=== PATIENT | male | born 1960 | race Caucasian/White ===

== ENCOUNTER 2022-07-07 08:42 | Outpatient (CLI) | payer BC, SELFPAY ==
[2022-07-07 13:38] LABS: Cholesterol* 168 mg/dL (90-199)
[2022-07-07 13:39] LABS: HDL Cholesterol* 48 mg/dL (>=40); LDL Cholesterol Calculated 99 mg/dL (<100); Triglycerides* 103 mg/dL (40-149)
[2022-07-07 23:55] LABS: Glucose* 119 mg/dL (60-115)
== END 2022-07-07 08:43 | disposition home or self-care (01) ==
PROVIDERS: PCP Physician Assistant Medical; Visit Provider Physician Assistant Medical
DX: Z00.00 Encounter for general adult medical examination without abnormal findings (principal); E21.3 Hyperparathyroidism, unspecified; R73.01 Impaired fasting glucose; E78.5 Hyperlipidemia, unspecified; I10 Essential (primary) hypertension
CPT/HCPCS: 80061; 82310; 82947; 83970; 84443

== ENCOUNTER 2023-12-07 10:17 | Outpatient (CLI) | payer BC, SELFPAY | END 2023-12-07 10:18 | disposition home or self-care (01) | LOC: LKVREF 10:17 | PROVIDERS: PCP Physician Assistant Medical; Visit Provider Physician Assistant Medical | DX: E21.3 Hyperparathyroidism, unspecified (principal); Z12.5 Encounter for screening for malignant neoplasm of prostate; E78.2 Mixed hyperlipidemia; I10 Essential (primary) hypertension; Z13.29 Encounter for screening for other suspected endocrine disorder; R82.90 Unspecified abnormal findings in urine | CPT/HCPCS: 80053; 80061; 82306; 82310; 83970; 84443; 87086; G0103 ==

== ENCOUNTER 2024-01-02 08:42 | Outpatient (CLI) | payer BC, SELFPAY ==
--- NOTE | 2024-01-02 08:45 | US_ITS ---
V Patient: SCOT STEVEN JR Facility:?[facility] RIS Patient ID:?[id number] Site Patient ID:?[id number]. Site :?1960 Study:?US-Extremity Bilateral ALNETTE INTV TO READ-01/02/2024 9:39:49 AM Ordering Physician:?LILO MURO Final Report: Indication: PALLOR Comparison: None Technique: Routine duplex arterial examination of bilateral lower extremities including 2D and spectral analysis, and color Doppler imaging was performed. Findings: In the right lower extremity there are multiphasic waveforms in the common femoral artery, profunda femoral artery, superficial femoral artery, and popliteal artery. Similarly, at the ankle, there are multiphasic waveforms in the posterior tibial artery, and dorsalis pedis arteries. No elevated velocities In the left lower extremity there are multiphasic waveforms within the common femoral artery, profunda femoral artery, superficial femoral artery, and popliteal artery. Similarly, at the ankle, there are multiphasic waveforms in the posterior tibial artery. Monophasic waveforms in the dorsalis pedis artery. No elevated velocities. Minimal atherosclerotic changes noted. Impression: Monophasic waveform within the left dorsalis pedis artery without abnormal velocity. Normal triphasic waveforms elsewhere bilaterally. No elevated velocities to suggest focal stenosis. Dictated by Royer Paniagua MD @ 01/02/2024 10:56:41 AM Signed by:?Royer Paniagua MD @01/02/2024 10:56:41 AM (Electronic Signature)
== END 2024-01-02 08:43 | disposition home or self-care (01) ==
LOC: US 08:43
PROVIDERS: PCP Physician Assistant Medical; Visit Provider Physician Assistant Medical
DX: R23.1 Pallor (principal); R09.89 Other specified symptoms and signs involving the circulatory and respiratory systems
CPT/HCPCS: 93926

== ENCOUNTER 2024-01-15 12:55 | Outpatient (CLI) | payer BC, SELFPAY ==
--- NOTE | 2024-01-15 13:00 | US_ITS ---
Patient: SCOT STEVEN JR Facility:?[facility] RIS Patient ID:?[id number] Site Patient ID:?[id number]. Site :?1960 Study:?US-Thyroid Bilateral -01/15/2024 1:51:44 PM Ordering Physician:GEORGE MURO Final Report: Indication: Hyperparathyroidism. Technique: Multiple grayscale and color Doppler images of the thyroid obtained. Comparison: None Findings: Right lobe: 5.4 x 1.5 x 2.0 cm. No nodules. Left lobe: 5.4 x 1.2 x 1.5 cm. Lesion 1: 1.1 cm solid, hypoechoic, smoothly marginated wider than tall nodule, TR 4. Lesion 2: 0.3 cm TR 4 nodule lower pole. Homogeneous thyroid parenchyma. No local adenopathy or extrathyroidal soft tissue mass. Impression: 1. No evidence for parathyroid adenoma. 2. 1.1 cm TR 4 nodule in the left thyroid lobe. Follow-up recommended in 1 year. ACR TI-RADS [email or web address] TR1: Benign No FNA TR2: Not Suspicious No FNA TR3: Mildly Suspicious FNA if greater than or equal to 2.5 cm Follow if greater than or equal to 1.5 cm TR4: Moderately Suspicious FNA if greater than or equal to 1.5 cm Follow if greater than or equal to 1 cm TR5: Highly Suspicious FNA if greater than or equal to 1 cm Follow if greater than or equal to 0.5 cm Dictated by Jose Raul Saenz MD @ 01/16/2024 9:54:48 AM Signed by:?Jose Raul Saenz MD @01/16/2024 9:54:48 AM (Electronic Signature)
== END 2024-01-15 12:56 | disposition home or self-care (01) ==
PROVIDERS: PCP Physician Assistant Medical; Visit Provider Physician Assistant Medical
DX: E21.3 Hyperparathyroidism, unspecified (principal); R09.89 Other specified symptoms and signs involving the circulatory and respiratory systems; R23.1 Pallor
CPT/HCPCS: 76536; 93924

== ENCOUNTER 2024-03-18 06:08 | Day surgery (SDC) | payer BC, SELFPAY ==
[2024-03-18] VITALS (17 sets, daily range): BP systolic 81–142; BP diastolic 38–81; PULSE 78–118; RESP 16; TEMP 36.2–36.9; O2SAT 93–99; BMI 37.0
--- OUTSIDE RECORDS SUMMARY | 2024-03-18 06:12 | XMS_ITS | Clinical Summary ---
Author Organization [facility] Address [place], [place] [address] Care Team Providers Care Order Caller Name Role Phone None Primary Care Provider Unavailabl e Encounters Date Type Department Care Team Description 01/15/2024 1:00 PM CDT Ancillary Procedure [facility] at [address] [address] from Last 3 Months Immunizations Name Administration Dates Next Due Influenza, IIV3 (Age >=3 years) 09/12/2012 Social History Tobacco Use Types Packs/Day Years Used Date Smoking Tobacco: Never Assessed Sex and Gender Information Value Date Recorded Sex Assigned at Not on file Gender Identity Not on file Sexual Orientation Not on file Plan of Treatment Not on file Procedures Procedure Name Priority Date/Time Associated Diagnosis Comments US ANKLE BRACHIAL INDEX BILATERAL Routine 01/15/2024 2:03 PM CDT Pallor from Last 3 Months Results * US ANKLE BRACHIAL INDEX BILATERAL (01/15/2024 2:03 PM CDT) Anatomical Region Laterality Modality ANKLES, ANKLE L, ANKLE R Ultraso und 01/15/2024 1:03 PM CDT Narrative 01/15/2024 4:39 PM CDT VASCULAR ULTRASOUND REPORT SCOT STEVEN Accession#: ?? [id number] : ?1960 ??Study Date: ?? 01/15/2024 1:03:07 PM Age: ?63 years ?? Tech: ? PAT Gender: M ?Referring MD: CHELLE MURO Site: [facility] Study performed: ?Lower extremity CIERA with exercise, (bilateral). Indication for study: Limb coldness, pre-op Study Quality: ?Good TECHNIQUE: Lower/upper extremity arteries were examined per exam protocol by duplex ultrasound, color-flow and spectral Doppler. Peak systolic velocities (PSV), Doppler waveform quality, velocity ratios and vessel size in cm, were documented at protocol specific sites. Physiologic data including segmental pressures, ankle/brachial index (CIERA), digit PPG recordings, laser Doppler flowmetry, transcutaneous oximetry, and digit temperatures were documented at sites per exam protocol and test requirements. IMPRESSION: 1. Resting ankle-brachial index is normal on the right at 1.19 and is normal on the left at 1.17. 2. The patient was unable to exercise for the entire protocol. 1 minute post exercises ABIs remain normal. COMPARISON: No prior study available for comparison. FINDINGS: +--------+ + + RIGHT ?? Velocity cm/s Phasicity ?? +--------+ + + SALES REP DST ? 74 ? multiphasic +--------+ + + SAMUEL DST ? 39 ? multiphasic +--------+ + + DPA ? 93 ? multiphasic +--------+ + + +--------+ + + LEFT ? Velocity cm/s Phasicity ?? +--------+ + + SALES REP DST ? 64 ? multiphasic +--------+ + + SAMUEL DST ? 32 ? multiphasic +--------+ + + DPA ? 46 ? multiphasic +--------+ + + Criteria: Stenosis ?V. Ratio Mild ?<50% ?<2.0 Moderate ?? 50-74% ?> or = 2.0 Severe ? 75-99% ?> or = 4.0 Occluded ?100% ?? no detectable flow Pressures +-----+ +--------+ +-----+ ? RIGHT (mmHg) ? LEFT (mmHg) ? +-----+ +--------+ +-----+ Index ?120 ? Brachial ?127 ? Index +-----+ +--------+ +-----+ 1.19 ?151 ?SALES REP ?135 ? 1.06 +-----+ +--------+ +-----+ 1.09 ?139 ?DPA ?149 ? 1.17 +-----+ +--------+ +-----+ EXERCISE Total Excercise Time: 1 minutes 17 seconds. Stopped due to bad/painful knees. Toe lifts. +-------+--------+ +------+ +------+ TIME ?? BRACHIAL RT PRESSURE RT CIERA LT PRESSURE LT CIERA +-------+--------+ +------+ +------+ Resting ??127 ?151 ? 1.19 ?149 ? 1.17 +-------+--------+ +------+ +------+ 1 min. ??138 ?163 ? 1.18 ?143 ? 1.04 +-------+--------+ +------+ +------+ Cj Will MD. Electronically signed on 01/15/2024 4:39:20 PM CC: HIM (medical records) [facility] This study was performed and interpreted by a service accredited by the Intersocietal Accreditation Commission (IAC/Vascular), www.[email or web address].org/vascular Report generated by [employer]. ??Final ?? Procedure Note Cj Will MD - 01/15/2024 VASCULAR ULTRASOUND REPORT SCOT STEVEN : 1960 Study Date: 01/15/2024 1:03:07 PM Age: 63 years Tech: PAT Gender: M Referring MD: CHELLE MURO Site: [facility] Study performed: Lower extremity CIERA with exercise, (bilateral). Indication for study: Limb coldness, pre-op Study Quality: Good TECHNIQUE: Lower/upper extremity arteries were examined per exam protocol by duplexultrasound, color-flow and spectral Doppler. Peak systolic velocities(PSV), Doppler waveform quality, velocity ratios and vessel size in cm,were documented at protocol specific sites. Physiologic data includingsegmental pressures, ankle/brachial index (CIERA), digit PPG recordings,laser Doppler flowmetry, transcutaneous oximetry, and digit temperatureswere documented at sites per exam protocol and test requirements. IMPRESSION: 1. Resting ankle-brachial index is normal on the right at 1.19 and isnormal on the left at 1.17. 2. The patient was unable to exercise for the entire protocol. 1 minutepost exercises ABIs remain normal. COMPARISON: No prior study available for comparison. FINDINGS: +--------+ + + RIGHT Velocity cm/s Phasicity +--------+ + + SALES REP DST 74 multiphasic +--------+ + + SAMUEL DST 39 multiphasic +--------+ + + DPA 93 multiphasic +--------+ + + +--------+ + + LEFT Velocity cm/s Phasicity +--------+ + + SALES REP DST 64 multiphasic +--------+ + + SAMUEL DST 32 multiphasic +--------+ + + DPA 46 multiphasic +--------+ + + Criteria: Stenosis V. Ratio Mild <50% <2.0 Moderate 50-74% > or = 2.0 Severe 75-99% > or = 4.0 Occluded 100% no detectable flow Pressures +-----+ +--------+ +-----+ RIGHT (mmHg) LEFT (mmHg) +-----+ +--------+ +-----+ Index 120 Brachial 127 Index +-----+ +--------+ +-----+ 1.19 151 SALES REP 135 1.06 +-----+ +--------+ +-----+ 1.09 139 DPA 149 1.17 +-----+ +--------+ +-----+ EXERCISE Total Excercise Time: 1 minutes 17 seconds. Stopped due to bad/painfulknees. Toe lifts. +-------+--------+ +------+ +------+ TIME BRACHIAL RT PRESSURE RT CIERA LT PRESSURE LT CIERA +-------+--------+ +------+ +------+ Resting 127 151 1.19 149 1.17 +-------+--------+ +------+ +------+ 1 min. 138 163 1.18 143 1.04 +-------+--------+ +------+ +------+ Cj Will MD. Electronically signed on 01/15/2024 4:39:20 PM CC: HIM (medical records) [facility] This study was performed and interpreted by a service accredited by theIntersocietal Accreditation Commission (IAC/Vascular),www.[email or web address]/vascular Report generated by [facility] [facility]. Final Chelle LENNON from Last 3 Months Care Teams Order Caller Relationship Specialty Start Date End Date None . PCP - General 09/11/12
--- OUTSIDE RECORDS SUMMARY | 2024-03-18 06:12 | XMS_ITS | Clinical Summary ---
Author Organization [facility] Address [address] [place] [address] Care Team Providers Care Director Of Investigations Name Role Phone Arlin Turpin MD Primary Care Provider [phone] Source Comments You are receiving this document as you are listed as the primary care provider,follow-up provider, or the patient has been referred to you for consultation.This is in compliance with the Medicare and[facility] EHR Incentive Program,which states Providers who transition their patient to another setting of careor provider of care or refers their patient to another provider of care shouldprovide summary care record for each transition of care or referral. [facility] Allerg[facility] No known active allergies Medications Medication Sig Dispensed Refills Start Date End Date Status Glucosamine 500 MGIndications:Hypercal cemia,Hyperparathyroid ism (HRC) Active ibuprofen (MOTRIN) 200 MG tabletIndications:Hype rcalcemia,Hyperparathy roidism (HRC) Take 200-400 mg by mouth every 4 hours as needed for Pain. Active lisinopril-hydrochloro thiazide (PRINZIDE;ZESTORETIC) 20-12.5 MG tabletIndications:Hype rcalcemia,Hyperparathy roidism (HRC) Take 1 Tablet by mouth daily. Active Multiple Vitamins-Minerals (MULTI ADULT GUMMIES OR)Indications:Hyperca lcemia,Hyperparathyroi dism (HRC) Active simvastatin (ZOCOR) 20 MG tabletIndications:Hype rcalcemia,Hyperparathy roidism (HRC) Take 20 mg by mouth daily at bedtime. Active Active Problems Problem Noted Date Diagnosed Date Primary hyperparathyroidism 08/28/2018 Overview: Added automatically from request for surgery [id number] Obesity, unspecified obesity severity, unspecified obesity type 06/27/2018 Essential hypertension 06/27/2018 Dyslipidemia 06/27/2018 Hypercalcemia 06/27/2018 Social History Tobacco Use Types Packs/Day Years Used Date Smoking Tobacco: Former Cigarettes Q uit: 08/28/1988 Smokeless Tobacco: Never Alcohol Use Standard Drinks/Week Comments Yes 0 (1 standard drink = 0.6 oz pur e alcohol) 1-2 per week Sex and Gender Information Value Date Recorded Sex Assigned at Not on file Gender Identity Not on file Sexual Orientation Not on file Last Filed Vital Signs Vital Sign Reading Time Taken Comments Blood Pressure 116/80 06/27/2018 10:01 AM CDT Pulse 96 06/27/2018 10:01 AM CDT Temperature - - Respiratory Rate - - Oxygen Saturation - - Inhaled Oxygen Concentration - - Weight 126.1 kg (278 lb) 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 Height 194.3 cm (6' 4.5) 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 Body Mass Index 33.4 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 Plan of Treatment Health Maintenance Due Date Last Done Comments Colon Cancer Screening Plan Due 1960 Hep C Screening (Preventive Services) 1960 PSA Screening Discussion 1960 HIV Screening (Preventive Services) 1978 Adult Preventive Visit 02/28/1980 Cholesterol 1997 Zoster/Shingles (1 of 2) 02/28/2012 COVID-19 Vaccine ( season) 2023 01/23/2021, 01/02/2021 Influenza (Season Ended) 2024 021, 08/30/2019, 08/19/2018, Additional history exists DTaP/Tdap/Td (2 - Tdap) 06/08/2027 06/08/2017, 12/29 HepA Aged Out 08/01/2007, 01/14, 12/29/2006 No longer eligible based on patient's age to complete this topic HepB Aged Out No longer eligi ble based on patient's age to complete this topic Hib Aged Out No longer eligi ble based on patient's age to complete this topic IPV (Polio) Aged Out No longer eligi ble based on patient's age to complete this topic MCV4 Aged Out No longer eligi ble based on patient's age to complete this topic Pneumococcal Aged Out No longer eligi ble based on patient's age to complete this topic Care Teams Director Of Investigations Relationship Specialty Start Date End Date Arlin Turpin MD [address] [place] [address] PCP - General Family Practice 06/27/18
[2024-03-18] MEDS: ACETAMINOPHEN 500 MG TABLET 1000 MG PO (06:15)
[2024-03-18] MEDS: OXYCODONE (CR) 10 MG TAB.ER.12H PO (06:15)
[2024-03-18] MEDS: LACTATED RINGERS 1000 ML 1,000 ML 100 ML IV (06:45)
[2024-03-18] MEDS: SODIUM CHLORIDE 0.9 % (FLUSH) 10 ML SYRINGE IVF (06:45)
--- NOTE | 2024-03-18 07:06 | W.PM.H&PU ---
History & Physical Update History & Physical Update H&P Reviewed and patient assessed: No changes noted
[2024-03-18] MEDS: MIDAZOLAM HCL 1 MG/ML inj IVP (07:10)
[2024-03-18] MEDS: fentaNYL 100 MCG/2 ML inj IVP (07:11)
--- NOTE | 2024-03-18 07:17 | SUR.PREOP ---
TIME?OUT:?0710 PT/RN/MDA?VERIFICATION?OF?SURGICAL?SITE,?PROCEDURE,?AND?CONSENT OBTAINED?PRIOR?TO?INVASIVE?PROCEDURE.
[2024-03-18] MEDS: CEFAZOLIN 2 GM in 0.9 % SODIUM CHLORIDE Mini-bag 100 ML IVPB (07:30)
[2024-03-18] MEDS: TRANEXAMIC ACID 100 MG/ML INJ 1000 MG IV (07:40)
--- NOTE | 2024-03-18 07:55 | W.PM.NB ---
Nerve Block Nerve Block Time Seen by Provider: 07:13 Date Seen: 03/18/24 Type of block requested by surgeon for post-operative analgesia: adductor canal Side: left Time out performed: Yes Verification of patient name: Yes Verification of date of : Yes Site marking: site marked Name of person performing procedure: Fabio Continuous monitoring Was continuous monitoring of O2 sat, B/P, engineering specialist technician, recorded every 15 minutes?: Yes Procedure Checklist: sterile prep, needles and gloves Ultrasound guided. Images saved: Yes Medications given in 5ml increments after negative aspiration: Ropivicaine %: 0.5 mL: 20 Needle gauge: 20 Decadron (mg): 10 Precedex (mcg): 25 Patient tolerated procedure well: Yes Additional comments: Needle noted adjacent to nerve Block Charges Block Charge (with Pro Fee): Femoral Nerve Use of Ultrasound Machine for Block: Yes- US Guidance/pain block
--- NOTE | 2024-03-18 07:56 | W.PM.NB ---
Nerve Block Nerve Block Time Seen by Provider: 07:13 Date Seen: 03/18/24 Type of block requested by surgeon for post-operative analgesia: geniculars Side: left Time out performed: Yes Verification of patient name: Yes Verification of date of : Yes Site marking: site marked Name of person performing procedure: Fabio Continuous monitoring Was continuous monitoring of O2 sat, B/P, panel monitor, recorded every 15 minutes?: Yes Procedure Checklist: sterile prep, needles and gloves Medications given in 5ml increments after negative aspiration: Ropivicaine %: 0.5 mL: 9 Needle gauge: 25 Patient tolerated procedure well: Yes Block Charges Block Charge (with Pro Fee): Genicular Nerve Block Use of Ultrasound Machine for Block: No
--- NOTE | 2024-03-18 07:56 | W.ANESCHARGE ---
Anesthesia Charges Start Date/Time Anesthesia Start Date: 03/18/24 Anesthesia Start Time: 07:18 Stop Date/Time Anesthesia Stop Date: 03/18/24 Anesthesia Stop Time: 09:40
--- NOTE | 2024-03-18 09:00 | P.ORPRC_ITS ---
Procedure Note Date of procedure: 03/18/24 Procedure: PREOPERATIVE DIAGNOSIS: 1. Left knee osteoarthritis, primary, severe POSTOPERATIVE DIAGNOSIS: 1. Left knee osteoarthritis, primary, severe PROCEDURE: 1. Left total knee arthroplasty-subvastus approach SURGEON: Seb Boyd MD. MANAGER PAYER: MACIEJ Ruiz - Of note, a skilled trading assistant was critical for this case to aid in patient positioning, tissue retraction, limb manipulation/positioning, and closure. ANESTHESIA: Spinal anesthetic EBL: 50ml IMPLANTS: DePuy J&J uncemented femur/tibia, cemented patella TKA - Attune Press fit PS femur size 8, size 8 tibia, 6 mm poly spacer, 41mm cemented patella TOURNIQUET: 90 min at 300 torr COMPLICATIONS: None evident INDICATIONS: The patient is a pleasant 64-year-old male who has experienced severe left knee pain and difficulty bearing weight. Workup included x-rays which revealed severe osteoarthrosis in the knee. Given the deformity, the dysfunction, and the pain, as well as the failure of nonoperative management, recommendation was made for surgery. FINDINGS: Full-thickness chondral loss diffusely throughout the medial and patellofemoral compartments. To a lesser degree lateral compartment. Degene rative medial meniscus pathology. Moderate to large effusion upon entering the joint. Large tricompartmental osteophytes. DESCRIPTION OF PROCEDURE: Following a thorough discussion of risks, benefits, and alternatives consent was obtained and the left knee was marked. The patient was brought to the operating room and placed supine on the operating table. Induction of anesthesia was undertaken. 3 g IV Ancef and 1 g tranexamic acid was administered within 1 hr of incision preoperatively. Proper time-out was performed identifying proper patient, site, procedure. The operative extremity w as prepped and draped in the appropriate sterile fashion using ChloraPrep after the patient was positioned supine with all bony prominences well padded. A longitudinal, anterior, midline skin incision was made starting approximately 3cm proximal to the superior pole of the patella and advanced distal to the tibial tubercle. A sub vastus approach was utilized. After mobilizing the patella, retropatellar fatpad was resected and the synovium in the suprapatellar pouch excised to visualize the anterior femoral cortex. We began with cutting the patella to help improve mobility of this patella and quad tendon. The patella was initially measured and found have a thickness of 30 mm. It was resected back to approximately 28.5 mm. Femoral preparation was performed via an intramedullary guide. Step drill allowed access into the femoral canal. The distal cutting guide was placed with 5? of valgus and 11 mm cut on the distal femur due to a 5-7 degree flexion contracture. Femur was sized using a anterior referencing guide in 3? of external rotation. This found have a best fit with the sizing noted above. The 4 in 1 cutting block was then placed, and the distal femur shaped accordingly. The box cut was then created and the trial implant inserted to confirm appropriate fit. We turned our attention to the proximal tibia. Extramedullary guide was utilized for cutting with the goal of being 90 degree cut from the mechanical axis of the tibia in the varus/valgus plane utilizing tibial crest as the primary alignment. Initially a 2 mm resection was performed from the medial tibi al plateau. Ultimately, balancing was achieved in both flexion and extension in both varus and valgus. The knee was able to achieve full extension comfortably. It was sized to be a best fit with as noted above. The patella prep was completed with drilling and a trial placed. At this stage, trial implants were removed, the tibia and femoral components were opened and inserted. Thereafter, the patella was thoroughly irrigated normal saline and dried. The cement was previously mixed on the back table and cement placed followed by the implant. This was clamped and allowed remained stable until the cement cured. The real poly spacer was opened and inserted. All extra cement was removed, and a 3 min Betadine soak performed. Finally, a final irrigation round with normal saline was performed. Closure performed with 0 PDS and #0 Stratafix for the quad tendon/retinaculum. 2-0 Vicryl/Stratafix for the subcutaneous and 4-0 Monocryl for subcuticular closure. Dressings were applied and the patient was awoken from anesthesia after the tourniquet deflated and transferred the PACU in stable condition. A skilled trading assistant was critical for this case to aid in patient positioning, tissue retraction, bone exposure, limb manipulation/positioning, patient safety, and closure. PLAN: 1. Weight bear as tolerated operative extremity. 2. 23 hr perioperative antibiotics. 3. Ice. 4. PT/OT consults for ambulation assistance/mobility education. 5. Social work consult for discharge planning. 6. [facility], and aspirin twice daily.
--- NOTE | 2024-03-18 09:35 | CRLHL7_ITS ---
For Patients: As a result of the Cures Act, medical imaging exams and procedure reports are released immediately into your electronic medical record. You may view this report before your referring provider. If you have questions, please contact your health care provider. Indication: TKA -POST OP Technique: 2 views left knee Findings/Impression: Hardware from a left total knee arthroplasty is in satisfactory position. Bone alignment is normal. No sign of acute fracture. Postop changes are within normal limits. Dictated by Royer Paniagua MD @ 03/18/2024 9:56:39 AM (Electronically Signed)
--- NOTE | 2024-03-18 09:46 | W.ANESCHARGE ---
Anesthesia Charges Start Date/Time Anesthesia Start Date: 03/18/24 Anesthesia Start Time: 07:18 Stop Date/Time Anesthesia Stop Date: 03/18/24 Anesthesia Stop Time: 09:40
[2024-03-18] MEDS: LACTATED RINGERS 1000 ML 1,000 ML 35 ML IV (10:02)
--- NOTE | 2024-03-18 12:57 | SUR.PHASEII ---
12:30 UP IN CHAIR WITH ASSIST OF A WALKER. DID WELL PUTTING WEIGHT ON LT. LEG. VERY STEADY AND STRONG TRANSFER TO CHAIR.
== END 2024-03-18 14:07 | disposition home or self-care (01) ==
LOC: OR 06:10
PROVIDERS: PCP Physician Assistant Medical; Visit Provider Orthopaedic Surgery Sports Medicine
PROC: (CPT 27447; principal; 2024-03-18 07:15)
DX: M17.12 Unilateral primary osteoarthritis, left knee (principal); G89.18 Other acute postprocedural pain
CPT/HCPCS: 27447; 01402; 64447; 64454; 73560; 76942; 97110; 97116; 97161; 97530; A9270; C1776; J0690; J1100; J2250; J2371; J2405; J2704; J2795; J3010; J7120

== ENCOUNTER 2024-05-30 10:00 | Outpatient (RCR) | payer BC, SELFPAY ==
--- NOTE | 2024-04-11 10:33 | PT.OPDN ---
PT [facility] Daily Note PT [facility] Daily Note Start: 03/13/24 07:40 Freq: Status: Active Protocol: Document 04/11/24 09:35 CJT (Rec: 04/11/24 10:32 CJT [id number]) E-signed By Jules Darling, PT PT OP Daily Progress Note Visit Information Note Type Recert/Progress Note Visit Number 8 Insurance Authorized Visits no auth required Physician Authorized Visits eval and treat Insurance Information Recert Due Date 06/11/24 Insurance Name [employer] Medical Diagnosis L TKA Treating Diagnosis L TKA Referring Seb Katz MD Subjective Subjective Pt doing well. Using his walking stick less and less. Preferred Name Sb Precautions Treatment Precautions/Contraindications DOS 03/18/24 Weight Bearing Status Weight Bear as Tolerated Home Exercise Home Exercise Comments Access Code: [email or web address] URL: [email or web address] Date: 04/09/2024 Prepared by: Jules Darling Exercises - Seated Long Arc Quad with Ankle Weight - 1 x daily - 7 x weekly - 2-3 sets - 10-15 reps - Step Up - 1 x daily - 7 x weekly - 2-3 sets - 10-20 reps - Standing March with Counter Support - 1 x daily - 7 x weekly - 3 sets - 10 reps - Standing Hip Abduction with Counter Support - 1 x daily - 7 x weekly - 3 sets - 10 reps - Standing Hip Extension with Counter Support - 1 x daily - 7 x weekly - 3 sets - 10 reps - Squat with Counter Support - 1 x daily - 7 x weekly - 3 sets - 10 reps - Heel Raises with Counter Support - 1 x daily - 7 x weekly - 3 sets - 10 reps Objective Other/Pertinent Objective L knee AROM: 0-0-116 Patient Instructed in Risks/Benefits Yes Therapeutic Exercise Therapeutic Exercise Minutes (minutes) 47 Therapeutic Exercise: To Restore Bike - Seat 16 -> 13, 12 Functional Status minutes 3-way hip in standing x 15 ea 6 step-ups, 2 x 15 4 step-downs, 2 x 15 Squats with hands at rail 2 x 15 TG Squats x 25 Supine knee extension stretch x 2' Knee flexion stretch with belt x 2' Manual Therapy Techniques Manual Therapy Minutes (minutes) 8 Manual Therapy Techniques STM to L quad, ITB, adductor bundle to reduce tissue tension and facilitate bloodflow to reduce muscle soreness. Gait & Stair Training Gait Training/Stairs Minutes (minutes) 4 Gait & Stair Training Comments Ambulation without AD: pt ambulates approx 240 ft, VC for heel-to-toe pattern through stance phase Treatment Minutes Timed Code Treatment Minutes 59 Total Treatment Time 59 Billing Units Manual Therapy Units 1 Therapeutic Exercise Units 3 Assessment/Impression Assessment/Impression Pt tolerates treatment very well. He will likely be quite sore in his L quad later today /tomorrow. He should continue to complete his exercises, walk and perform light massage to sore muscle to help reduce DOMS. Sb is demonstrating 0 -0-116 degrees of L knee AROM this date. While he did have a few rough weeks after surgery with excessive swelling and pain, he is progressing on an appropriate timeline. I have no concerns for Sb at this time. Recommend continued PT services to address deficits and return pt to highest level of function. Plan of Care Physical Therapy Goals STG - To be completed in 2-3 weeks: 1. Pt will report consistent use of ice as well as elevation of surgical limb while resting to reduce inflammation and swelling. MET 2. Pt will demonstrate 90 degrees of knee flexion on surgical limb to reduce risk of contracture development and progress through rehabilitation as expected. MET 3. Pt to show appropriate use of all AD's with minimal gait deviations and no LOB with all ambulation to reduce risk of falls and restore normal gait mechanics. MET 4. Pt will demo full knee extension to reduce risk of contracture in posterior knee and allow for ease of ambulation. MET LTG - To be completed in 8-12 weeks: 1. Pt to be I with HEP so that they may I manage progression of symptoms. 2. Pt will demonstrate 120 degrees knee flexion on surgical limb so that they may descend steps without restrictions in ROM. 3. Pt will perform 10+ squats of full depth with good control over medial/lateral deviation of knees to show improved functional strength to assist with transfers. 4. Pt will demonstrate 5/5 MMT knee flexion/extension of surgical limb to provide greater support to knee joint and allow for ease of ambulation. 5. Pt will ambulate with no AD and minimal gait deviations so that they may return to walking safely and comfortably for exercise and pleasure. Daily Plan of Care Continue per POC Student Supervision Licensed PT Directed/Approved Treatment, Reviewed POC with Patient,Made Contact with Patient, Participated in Treatment Documentation Reviewed By Orderly Yes
== END 2024-05-30 14:00 | disposition home or self-care (01) ==
PROVIDERS: PCP Physician Assistant Medical; Visit Provider Orthopaedic Surgery Sports Medicine
DX: M17.12 Unilateral primary osteoarthritis, left knee (principal); Z96.652 Presence of left artificial knee joint; Z51.89 Encounter for other specified aftercare
CPT/HCPCS: 97016; 97110; 97112; 97116; 97140; 97161; 97164

== ENCOUNTER 2025-02-17 12:03 | Outpatient (CLI) | payer BC, SELFPAY | END 2025-02-17 12:04 | disposition home or self-care (01) | PROVIDERS: PCP Physician Assistant Medical; Visit Provider Physician Assistant Medical | DX: E04.1 Nontoxic single thyroid nodule (principal); R73.01 Impaired fasting glucose; E66.09 Other obesity due to excess calories; E21.3 Hyperparathyroidism, unspecified; E78.5 Hyperlipidemia, unspecified; I10 Essential (primary) hypertension; Z12.5 Encounter for screening for malignant neoplasm of prostate; Z13.6 Encounter for screening for cardiovascular disorders; Z68.36 Body mass index [BMI] 36.0-36.9, adult; Z11.59 Encounter for screening for other viral diseases; Z11.3 Encounter for screening for infections with a predominantly sexual mode of transmission | CPT/HCPCS: 80053; 80061; 82306; 83970; 84443; 86703; 86803; G0103 ==

== ENCOUNTER 2025-02-18 09:42 | Outpatient (CLI) | payer BC, SELFPAY ==
--- NOTE | 2025-02-18 09:15 | CRLHL7_ITS ---
For Patients: As a result of the Century Cures Act, medical imaging exams and procedure reports are released immediately into your electronic medical record. You may view this report before your referring provider. If you have questions, please contact your health care provider. INDICATION: Thyroid nodules COMPARISON: 01/15/2024 TECHNIQUE: Lyons scale and color Doppler images were acquired of the thyroid gland. FINDINGS: Hypoechoic nodule inferior pole left thyroid lobe measures 3 x 2 x 3 millimeters, TR 4, previously measuring 3 x 2 x 4 millimeters. Solid nodule left thyroid lobe measures 8 x 6 x 11 millimeters, previously measuring 11 millimeters, TR 4. The right lobe measures 5.7 x 1.5 x 1.9 cm and the left lobe measures 5.1 x 1.2 x 1.4 cm in size. The isthmus measures 3 millimeters. The color Doppler images demonstrate normal vascularity. There is no evidence of cervical lymphadenopathy or parathyroid mass. IMPRESSION: Stable left-sided thyroid nodules. Continued follow-up in 1-2 years recommended. Dictated by Royer Paniagua MD @ 02/18/2025 8:07:22 PM (Electronically Signed)
== END 2025-02-18 09:43 | disposition home or self-care (01) ==
PROVIDERS: PCP Physician Assistant Medical; Visit Provider Physician Assistant Medical
DX: E04.1 Nontoxic single thyroid nodule (principal)
CPT/HCPCS: 76536

== ENCOUNTER 2025-03-28 14:54 | Emergency (ER) | payer BC, SELFPAY ==
[2025-03-28] VITALS (58 sets, daily range): BP systolic 117–155; BP diastolic 66–96; PULSE 110–130; RESP 16–30; TEMP 37.3; O2SAT 89–96; BMI 37.4
--- NOTE | 2025-03-28 14:55 | CRLHL7_ITS ---
For Patients: As a result of the Century Cures Act, medical imaging exams and procedure reports are released immediately into your electronic medical record. You may view this report before your referring provider. If you have questions, please contact your health care provider. INDICATION: SOB, elevated D-dimer. TECHNIQUE: CT chest PE was acquired with 95 cc Isovue 370 IV contrast. COMPARISON: None. FINDINGS: Heart and vasculature: Saddle pulmonary embolism (/80) that begins in the main pulmonary artery and extends bilaterally to the distal branches. Main pulmonary artery is normal caliber. RV:LV ratio is greater than 1. Trace pericardial effusion. Coronary artery atherosclerotic calcifications. Atherosclerotic calcifications of the aortic arch. Lungs and pleura: No definite acute infiltrate. Multiple noncalcified pulmonary nodules, for example 8 mm right lower lobe subpleural nodule (5/92), 5 mm right upper lobe subpleural nodule (5/59), and 5 mm left lower lobe subpleural nodule (5/99). Mild subsegmental atelectasis no pleural effusions, pleural thickening, or pneumothorax. Lymph nodes/mediastinum: No mediastinal, hilar, or axillary adenopathy. Chest wall: No masses. Moderate bilateral gynecomastia. Upper abdomen: No acute findings. 1.6 cm right adrenal nodule that is not fully characterized on this exam (4/211). Bones: Unremarkable for age. IMPRESSION: 1. Saddle pulmonary embolism extending to the distal branches. RV:LV ratio is greater than 1, which could be consistent with right heart strain in the right clinical setting. 2. Multiple noncalcified pulmonary nodules measuring up to 8 mm. Per Fleischner guidelines, follow-up chest CT in 6-12 months could be considered to ensure stability. 3. Indeterminate 1.6 cm right adrenal nodule. Outpatient MR or CT adrenal protocol could be considered for more definitive evaluation, if clinically indicated. Findings communicated to MD Papi (ordering provider) by MD Abdi (radiology) at 4:35 p.m. by phone. Please note that all CT scans at this facility use dose modulation, iterative reconstruction, and/or weight-based dosing when appropriate to reduce radiation dose to as low as reasonably achievable. Dictated by Royer Patton MD @ 03/28/2025 4:48:32 PM (Electronically Signed)
--- OUTSIDE RECORDS SUMMARY | 2025-03-28 14:55 | XMS_ITS | Clinical Summary ---
Author Organization [facility] Address [address] [place] [address] Care Team Providers Care Spark Tester Name Role Phone Arlin Turpin MD Primary Care Provider [phone] Source Comments You are receiving this document as you are listed as the primary care provider,follow-up provider, or the patient has been referred to you for consultation.This is in compliance with the Medicare and[facility] EHR Incentive Program,which states Providers who transition their patient to another setting of careor provider of care or refers their patient to another provider of care shouldprovide summary care record for each transition of care or referral. [facility] Allergies No known active allergies Medications Glucosamine 500 MGIndications:Hy percalcemia,Hype rparathyroidism (HRC) Active ibuprofen (MOTRIN) 200 MG tabletIndication s:Hypercalcemia, Hyperparathyroid ism (HRC) Take 200-400 mg by mouth every 4 hours as needed for Pain. Active lisinopril-hydro chlorothiazide (PRINZIDE;ZESTOR ETIC) 20-12.5 MG tabletIndication s:Hypercalcemia, Hyperparathyroid ism (HRC) Take 1 Tablet by mouth daily. Active Multiple Vitamins-Mineral s (MULTI ADULT GUMMIES OR)Indications:H ypercalcemia,Hyp erparathyroidism (HRC) Active simvastatin (ZOCOR) 20 MG tabletIndication s:Hypercalcemia, Hyperparathyroid ism (HRC) Take 20 mg by mouth daily at bedtime. Active Active Problems Problem Noted Date Diagnosed Date Primary hyperparathyroidism 08/28/2018 Overview (08/28/2018): Added automatically from request for surgery [id number] Obesity, unspecified obesity severity, unspecified obesity type [...] Recorded Sex Assigned at Not on file Legal Sex Male 3:00 PM CDT Gender Identity Not on file Sexual Orientation Not on file Last Filed Vital Signs Vital Sign Reading Time Taken Comments Blood Pressure 116/80 06/27/2018 10:01 AM CDT Pulse 96 06/27/2018 10:01 AM CDT Temperature - - Respiratory Rate - - Oxygen Saturation - - Inhaled Oxygen Concentration - - Weight 126.1 kg (278 lb) 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 Height 194.3 cm (6' 4.5) 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 Body Mass Index 33.4 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 Plan of Treatment Health Maintenance Due Date Last Done Comments Colon Cancer Screening Plan Due 1960 Hep C Screening (Preventive Services) 1960 PSA Screening Discussion 1962 HIV Screening (Preventive Services) 1978 Adult Preventive Visit 02/28/1980 Cholesterol 1997 Pneumococcal Vaccine 50+ Yrs (1 of 1 - PCV) 02/28/2012 Zoster/Shingles Vaccine (1 of 2) 02/28/2012 COVID-19 Vaccine ( - season) 2024 01/23/2021, 01/02/2021 Influenza Vaccine (Season Ended) 2025 10/23/2020, 08/30/2019, 08/19/2018, Additional history exists DTaP/Tdap/Td Vaccine (2 - Tdap) 06/08/2027 06/08/2017, 12/29/2006 RSV Vaccine (1 - 1-dose 75+ series) 2037 HepA Vaccine Aged Out 08/01/2007, 01/14, 12/29/2006 No longer eligible based on patient's age to complete this topic HepB Vaccine Aged Out No longer eligi ble based on patient's age to complete this topic Hib Vaccine Aged Out No longer eligi ble based on patient's age to complete this topic IPV (Polio) Vaccine Aged Out No longe r eligible based on patient's age to complete this topic MCV4 Vaccine Aged Out No longer eligi ble based on patient's age to complete this topic Meningococcal B Vaccine Aged Out No l onger eligible based on patient's age to complete this topic Insurance [facility] Care Teams Spark Tester Relationship Specialty Start Date End Date Arlin Turpin MD [id number] [place] [address] PCP - General Family Practice 06/27/18
--- OUTSIDE RECORDS SUMMARY | 2025-03-28 14:55 | XMS_ITS | Clinical Summary ---
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 PCP - General 09/11/12
--- NOTE | 2025-03-28 14:57 | CRLHL7_ITS ---
For Patients: As a result of the Century Cures Act, medical imaging exams and procedure reports are released immediately into your electronic medical record. You may view this report before your referring provider. If you have questions, please contact your health care provider. INDICATION: Leg pain and swelling. TECHNIQUE: Ultrasound venous duplex lower right extremity. Compression venous exam was performed using victor-scale, color Doppler, and spectral Doppler analysis. COMPARISON: None. FINDINGS: Deep veins: Acute DVT involving the distal right femoral vein and popliteal vein. Remaining deep veins are patent. Superficial veins: Greater saphenous vein is fully compressible. No popliteal cyst. IMPRESSION: Acute DVT involving the distal right femoral vein and popliteal vein. Case discussed with Arlin Turpin at 4:07 p.m. on 03/28/2025. Dictated by Cj Shoemaker MD @ 03/28/2025 4:02:59 PM (Electronically Signed)
--- NOTE | 2025-03-28 15:37 | ED_ITS ---
HPI - General Adult General Chief complaint: Shortness of Breath/Dyspnea Stated complaint: Shortness of breath Time Seen by Provider: 03/28/25 14:55 Source: patient Mode of arrival: ambulatory Limitations: no limitations History of Present Illness HPI narrative: 65-year-old male presenting with shortness of breath for 5 days. Patient states that he became acutely short of breath and Monday while he was at work. 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 He had to rest multiple times to catch his breath. He he felt okay Monday, Monday. On but shortness of breath came back again with some left-sided chest wall pain. The pain is better today but the shortness of breath continues. He states that he can hardly do any physical activity. He also states that a about 2 weeks ago he developed swelling of the left lower extremity. He does have chronic swelling of the foot that comes ago after he had a knee replacement on that side but he developed swelling from the knee down about 2 weeks ago. That has not gotten any better. He also states the leg feels quite sore. He denies any fevers or chills. No cough. Denies any recent travel or recent surgery. His knee replacement was approximately 1 year ago. Patient was seen in the clinic today and was found to be tachycardic and tachypneic so he was sent to the ER for further evaluation. Of note, father has a history of DVT and PE and sister has a history of DVT. Chemistries were unremarkable, troponin was normal in the clinic today. D-dimer markedly elevated. Related Data Previous Rx's ?Medication ?Instructions ?Recorded lisinopril 20 1 tab PO QDAY #90 tabs 02/17 mg-hydrochlorothiazide 12.5 mg tablet simvastatin 20 mg tablet 20 mg PO QPM for cholesterol #90 02/17/25 tabs lorazepam 1 mg tablet (Ativan) 1 mg PO BID PRN anxiety #30 tabs 03/28/25 Allergies Allergy/AdvReac Type Severity Reaction Status Date / Time No Known Drug Allergies Allergy Verified 03/28/25 16:09 Review of Systems Status of ROS: Reports: 10 or more systems reviewed and unremarkable except as noted in History and below [facility] Medical History Decreased pedal pulses ?R09.89 - Other specified symptoms and signs involving the circulatory and respiratory systems (ICD-10) Proteinuria ?R80.9 - Proteinuria, unspecified (ICD-10) Hematuria ?R31.9 - Hematuria, unspecified (ICD-10) Surgical History History of knee replacement procedure of left knee (~03/2024) ?Z96.652 - Presence of left artificial knee joint (ICD-10) History of tonsillectomy ?Z90.89 - Acquired absence of other organs (ICD-10) History of arthroscopy of left knee (09/22/15) ?Z98.890 - Other specified postprocedural states (ICD-10) Family History Sister Coagulation disorder Father Coagulation disorder Alcohol dependence Mother Dementia Basal cell carcinoma Brother High blood pressure Paternal Grandfather Stroke Social History Narrative: 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 He does not have a specific exercise routine. He is ( Erica) with grown children. Former smoker during high school; quit over 40 years ago. Rare alcohol use 1-2 drinks per month What is your current living situation?: I presently have a place to live Problems where you live: no known problems In the past 12 months, utilities in danger of being shut off: no In past 12 months, lack of transportation kept you from medical appts, meetings, work, or getting things needed for daily living: no In the past 12 mos, have been you worried that your food would run out before you had money to buy more?: never true In the past 12 mos, the food you bought just didn't last and you didn't have money to buy more?: never true Smoking Status: Former smoker Do you use any of these nicotine containing products: None How often do you have a drink containing alcohol: monthly or less Alcohol type: hard liquor How many standard drinks containing alcohol do you have on a typical day: 1 or 2 How often do you have six or more drinks on one occasion: Never AUDIT-C Alcohol total score: 1 Non-prescribed substance use: denies use and over the counter (eg: immodium) Caffeine: Yes How often does anyone, including family, friends and others, physically hurt you : never How often does anyone, including family, friends and others, insult or talk down to you: never How often does anyone, including family, friends and others, threaten you with harm: never How often does anyone, including family, friends and others, scream or curse at you: never Exam Narrative: Exam Narrative: Overweight, well-developed patient in no acute distress. Alert and oriented. Answers questions appropriately. Mood and affect are appropriate. Thoughts are goal oriented and rational. No tangential or magical thinking noted. Is tachypneic. Has a hard time completing a full sentence without needing to catch his breath. HEENT: Normocephalic atraumatic. Pupils are equally round reactive to light. Extraocular muscles are intact. Conjunctivae are moist without any icterus noted. Moist mucous membranes. Cardiovascular: Heart is tachycardic, regular rhythm S1 and S2 are present without any murmurs. Lungs: Clear to auscultation bilaterally no wheezes rhonchi or rales are appreciated. Patient takes deep breaths without any discomfort. Abdomen: Soft and nontender nondistended with normal bowel sounds. Extremities: Bilateral lower extremities are without pitting edema. However, left lower extremity does have a larger circumference than the right from the calf to the ankle. Skin: Well perfused. Const: Vital Signs, click to edit/add: Vital Signs - 24 hr 03/28/25 14:57 03/28/25 15:41 03/28/25 15:45 Temperature 99.2 F Pulse Rate 119 H 118 H Pulse Rate [Right Pulse Oximeter] 118 H Respiratory Rate 30 H 21 26 H Blood Pressure Blood Pressure [Ri ght Upper Arm] 141/85 H Pulse Oximetry 96 93 92 Oxygen Delivery Me thod Room Air Oxygen Flow Rate 03/28/25 15:47 03/28/25 15:48 03/28/25 16:19 Temperature Pulse Rate 116 H 116 H 117 H Pulse Rate [Right Pulse Oximeter] Respiratory Rate 24 19 26 H Blood Pressure 153/85 H Blood Pressure [Ri ght Upper Arm] Pulse Oximetry 93 92 93 Oxygen Delivery Me thod Oxygen Flow Rate 03/28/25 16:21 03/28/25 16:30 03/28/25 16:32 Temperature Pulse Rate 115 H 116 H 118 H Pulse Rate [Right Pulse Oximeter] Respiratory Rate 23 22 28 H Blood Pressure 150/84 H 152/83 H Blood Pressure [Ri ght Upper Arm] Pulse Oximetry 93 92 93 Oxygen Delivery Me thod Oxygen Flow Rate 03/28/25 16:45 03/28/25 16:47 03/28/25 17:00 Temperature Pulse Rate 120 H 119 H 125 H Pulse Rate [Right Pulse Oximeter] Respiratory Rate 27 H 25 H 22 Blood Pressure 152/82 H Blood Pressure [Ri ght Upper Arm] Pulse Oximetry 92 92 92 Oxygen Delivery Me thod Oxygen Flow Rate 03/28/25 17:02 03/28/25 17:15 03/28/25 17:35 Temperature Pulse Rate 129 H 124 H 130 H Pulse Rate [Right Pulse Oximeter] Respiratory Rate 21 25 H 28 H Blood Pressure 155/96 H Blood Pressure [Ri ght Upper Arm] Pulse Oximetry 91 91 94 Oxygen Delivery Me thod Oxygen Flow Rate 03/28/25 17:37 03/28/25 17:38 03/28/25 17:45 Temperature Pulse Rate 126 H 126 H 123 H Pulse Rate [Right Pulse Oximeter] Respiratory Rate 27 H 22 20 Blood Pressure 151/87 H Blood Pressure [Ri ght Upper Arm] Pulse Oximetry 94 94 92 Oxygen Delivery Me thod Oxygen Flow Rate 03/28/25 17:47 03/28/25 18:00 03/28/25 18:02 Temperature Pulse Rate 124 H 123 H 120 H Pulse Rate [Right Pulse Oximeter] Respiratory Rate 23 24 29 H Blood Pressure 132/84 140/81 H Blood Pressure [Ri ght Upper Arm] Pulse Oximetry 92 90 92 Oxygen Delivery Me thod Oxygen Flow Rate 03/28/25 18:15 03/28/25 18:17 03/28/25 18:30 Temperature Pulse Rate 122 H 123 H 126 H Pulse Rate [Right Pulse Oximeter] Respiratory Rate 29 H 29 H 22 Blood Pressure 131/86 Blood Pressure [Ri ght Upper Arm] Pulse Oximetry 90 89 89 Oxygen Delivery Me thod Oxygen Flow Rate 03/28/25 18:32 03/28/25 18:45 03/28/25 18:47 Temperature Pulse Rate 129 H 121 H 123 H Pulse Rate [Right Pulse Oximeter] Respiratory Rate 27 H 23 22 Blood Pressure 144/85 H 130/82 Blood Pressure [Ri ght Upper Arm] Pulse Oximetry 92 89 89 Oxygen Delivery Me thod Oxygen Flow Rate 03/28/25 18:48 03/28/25 18:48 Temperature Pulse Rate 121 H Pulse Rate [Right Pulse Oximeter] Respiratory Rate 26 H 16 Blood Pressure Blood Pressure [Ri ght Upper Arm] Pulse Oximetry 89 92 Oxygen Delivery Me thod Room Air Nasal Cannula Oxygen Flow Rate 2 Course Course ED Course: EKG, read by pr, shows sinus tachycardia with a pulse of 122. US of lower left extremity positive for DVT distal femoral and popliteal veins. Patient given a dose of Eliquis at this time. CT scan shows saddle PE. Right heart strain - main pulm artery is not enlarged, RV to LV ratio was greater than 1. Consulted with doctors Ciara - interventional radiologist and Dr. Ayala - instructor ballroom dancing at [facility]. They recommend a PE response team and transferred to [facility] at this time, especially since the patient needs an echocardiogram we cannot do that at this time nor tomorrow. Unfortunately, there are no beds available and there is up to an [address] Urbina also recommended starting heparin drip without doing a bolus since he already received Eliquis. Dr. Mclean, hospitalist at [facility] excepting for admission. Repeat troponin showed no significant changes. CBC shows an elevated white cell count. Normal INR. Oxygen saturation did start to drop slightly to 89-91% on room air. Patient placed on 2 L nasal cannula. Vital Signs Vital signs: Initial Vital Signs Temperature 99.2 F 03/28/25 14:57 Temperature Source Temporal Artery Scan 03/28/25 14:57 Pulse Rate 118 H 03/28/25 14:57 Pulse Rhythm Regular 03/28/25 14:57 Pulse Strength 3+ Normal 03/28/25 14:57 Respiratory Rate 30 H 03/28/25 14:57 Blood Pressure 141/85 H 03/28/25 14:57 Blood Pressure Mean 103 03/28/25 14:57 Blood Pressure Position Sitting 03/28/25 14:57 Pulse Oximetry 96 03/28/25 14:57 Oxygen Delivery Method Room Air 03/28/25 14:57 Vital Signs Temperature 99.2 F 03/28/25 14:57 Pulse Rate 118 H 03/28/25 14:57 Respiratory Rate 30 H 03/28/25 14:57 Blood Pressure 141/85 H 03/28/25 14:57 Pulse Oximetry 96 03/28/25 14:57 Oxygen Delivery Method Room Air 03/28/25 14:57 Temperature 99.2 F 03/28/25 14:57 Pulse Rate 121 H 03/28/25 18:48 Respiratory Rate 16 03/28/25 18:48 Blood Pressure 130/82 03/28/25 18:47 Pulse Oximetry 92 03/28/25 18:48 Oxygen Delivery Method Nasal Cannula 03/28/25 18:48 Oxygen Flow Rate 2 03/28/25 18:48 Medications Administered Medications: Generic Name Dose Route Start Last Admin Trade Name Freq PRN Reason Stop Dose Admin Heparin Sodium/Dextrose 25,000 unit in 500 mls @ 0 mls/hr 03/28/25 17:15 03/28/25 17:32 Heparin IV 1,500 unit/hr .Q0M PILAR 30 mls/hr Protocol Administration Per Protocol Discontinued Medications Generic Name Dose Route Start Last Admin Trade Name Freq PRN Reason Stop Dose Admin Apixaban 10 mg 03/28/25 16:09 03/28/25 16:26 Apixaban 5 Mg Tablet PO 03/28/25 16:10 10 mg ONCE ONE Administration Medical Decision Making MDM Narrative Medical decision making narrative: 65-year-old male with left-sided lower extremity DVT and saddle PE. Patient will be transferred to [facility] for further management. Medical Records Medical records reviewed: Yes I reviewed the patient's medical records Lab Data Lab results reviewed: Yes I reviewed the patient's lab results Labs: Lab Results 03/28/25 03/28/25 03/28/25 Range/Units 13:50 15:35 15:42 WBC 18.38 H (4.50-11.00) K/uL RBC 5.42 (4.30-5.90) m/uL Hgb 15.8 (13.5-17.5) gm/dL Hct 47.9 (37.0-53.0) % MCV 88 (80-100) fL MCH 29 (26-34) pg MCHC 33 (32-36) gm/dL RDW Coeff of Josy 12.8 (11.5-15.5) % Plt Count 321 (140-440) K/uL Neut % (Auto) 75.8 H (42.0-72.0) % Lymph % (Auto) 12.8 L (20-44) % Sutton % (Auto) 9.4 (0.0-11.0) % Eos % (Auto) 1.1 (0.0-7.0) % Baso % (Auto) 0.2 (0.0-3.0) % Neut # (Auto) 13.90 H (1.7-7.0) K/uL Lymph # (Auto) 2.40 (0.90-2.90) K/uL Sutton # (Auto) 1.70 H (0.00-0.90) K/UL Eos # (Auto) 0.20 (0.00-0.50) K/uL Baso # (Auto) 0.00 (0.00-0.30) K/uL Abs Immat Gran (auto) 0.10 (0.00-0.30) K/uL Imm/Tot Granulo (auto) 0.7 % INR 1.04 (0.91-1.10) APTT 28 (23-33) Seconds Troponin I 0.02 (0.01-0.04) ng/mL POC Creatinine 0.8 (0.6-1.3) mg/dl Imaging Data Venous US: Attestation: I have reviewed the pertinent imaging results. Radiologist's impression: TECHNIQUE: Ultrasound venous duplex lower right extremity. Compression venous exam was performed using victor-scale, color Doppler, and spectral Doppler analysis. COMPARISON: None. FINDINGS: Deep veins: Acute DVT involving the distal right femoral vein and popliteal vein. Remaining deep veins are patent. Superficial veins: Greater saphenous vein is fully compressible. No popliteal cyst. IMPRESSION: Acute DVT involving the distal right femoral vein and popliteal vein. CT scan - chest: Attestation: I have reviewed the pertinent imaging results. Radiologist's impression: INDICATION: SOB, elevated D-dimer. TECHNIQUE: CT chest PE was acquired with 95 cc Isovue 370 IV contrast. COMPARISON: None. FINDINGS: Heart and vasculature: Saddle pulmonary embolism (80) that begins in the main pulmonary artery and extends bilaterally to the distal branches. Main pulmonary artery is normal caliber. RV:LV ratio is greater than 1. Trace pericardial effusion. Coronary artery atherosclerotic calcifications. Atherosclerotic calcifications of the aortic arch. Lungs and pleura: No definite acute infiltrate. Multiple noncalcified pulmonary nodules, for example 8 mm right lower lobe subpleural nodule (5/92), 5 mm right upper lobe subpleural nodule (5/59), and 5 mm left lower lobe subpleural nodule (5/99). Mild subsegmental atelectasis no pleural effusions, pleural thickening, or pneumothorax. Lymph nodes/mediastinum: No mediastinal, hilar, or axillary adenopathy. Chest wall: No masses. Moderate bilateral gynecomastia. Upper abdomen: No acute findings. 1.6 cm right adrenal nodule that is not fully characterized on this exam (4/211). Bones: Unremarkable for age. IMPRESSION: 1. Saddle pulmonary embolism extending to the distal branches. RV:LV ratio is greater than 1, which could be consistent with right heart strain in the right clinical setting. 2. Multiple noncalcified pulmonary nodules measuring up to 8 mm. Per Fleischner guidelines, follow-up chest CT in 6-12 months could be considered to ensure stability. 3. Indeterminate 1.6 cm right adrenal nodule. Outpatient MR or CT adrenal protocol could be considered for more definitive evaluation, if clinically indicated. ECG Data Attestation: I personally reviewed and interpreted this ECG as follows: Discharge Plan Discharge Clinical Impression: Acute saddle pulmonary embolism, DVT (deep venous thrombosis) Patient Disposition: [facility] Condition: Stable Prescriptions: No Action lisinopril-hydrochlorothiazide 20-12.5 mg tablet 1 tab PO QDAY Qty: 90 3RF simvastatin 20 mg tablet 20 mg PO QPM Qty: 90 3RF lorazepam [Ativan] 1 mg tablet 1 mg PO BID PRN (Reason: anxiety) Qty: 30 0RF Stand Alone Forms: [employer] Info Instructions
[2025-03-28 15:51] LABS: Creatinine, Point-of-Care* 0.8 mg/dl (0.6-1.3)
[2025-03-28] MEDS: APIXABAN 5 MG TABLET 10 MG PO (16:26)
[2025-03-28 17:10] LABS: Basophils Percent Auto 0.2 % (0.0-3.0); Eosinophils Percent Auto 1.1 % (0.0-7.0); Hematocrit 47.9 % (37.0-53.0); Hemoglobin* 15.8 gm/dL (13.5-17.5); Immature Granulocytes Pct Auto 0.7 %; Lymphocytes Percent Auto 12.8 % (20-44); Mean Corpuscular HGB Conc 33 gm/dL (32-36); Mean Corpuscular Hemoglobin 29 pg (26-34); Mean Corpuscular Volume 88 fL (80-100); Monocytes Percent Auto 9.4 % (0.0-11.0); Neutrophils Percent Auto 75.8 % (42.0-72.0); Platelet Count* 321 K/uL (140-440); RDW Coefficient of Variation % 12.8 % (11.5-15.5); Red Blood Count 5.42 m/uL (4.30-5.90); White Blood Count* 18.38 K/uL (4.50-11.00)
[2025-03-28 17:13] LABS: Slide Review Reflex No
[2025-03-28 17:28] LABS: INR 1.04 (0.91-1.10); Prothrombin Time 14.4 Seconds
[2025-03-28] MEDS: HEPARIN 25,000 UNIT/500 ML BAG 30 UNIT IV (17:32)
[2025-03-28 17:41] LABS: Troponin I* 0.02 ng/mL (0.01-0.04)
[2025-03-28 18:14] LABS: Partial Thromboplastin Time* 28 Seconds (23-33)
== END 2025-03-28 22:45 | disposition short-term general hospital (02) ==
PROVIDERS: Emergency Provider Family Medicine; PCP Physician Assistant Medical
DX: I26.92 Saddle embolus of pulmonary artery without acute cor pulmonale (principal); I82.412 Acute embolism and thrombosis of left femoral vein
CPT/HCPCS: 36415; 71275; 82565; 84484; 85025; 85610; 85730; 93971; 99285; A9270; J1644; Q9967

== ENCOUNTER 2025-03-28 22:30 | Outpatient (CLI) | payer BC, SELFPAY | END 2025-03-28 22:31 | disposition home or self-care (01) | LOC: AMB 03-31 09:45 | PROVIDERS: PCP Physician Assistant Medical; Visit Provider Family Medicine | DX: I26.92 Saddle embolus of pulmonary artery without acute cor pulmonale (principal); I82.409 Acute embolism and thrombosis of unspecified deep veins of unspecified lower extremity | CPT/HCPCS: A0425; A0434 ==

== ENCOUNTER 2025-04-29 11:21 | Outpatient (CLI) | payer BC, SELFPAY ==
--- NOTE | 2025-04-29 11:30 | CRLHL7_ITS ---
For Patients: As a result of the Century Cures Act, medical imaging exams and procedure reports are released immediately into your electronic medical record. You may view this report before your referring provider. If you have questions, please contact your health care provider. INDICATION: Follow-up DVT, PE COMPARISON: Ultrasound 03/28/2025 TECHNIQUE: A compression venous ultrasound exam was performed of both lower extremities using victor scale imaging, color Doppler and spectral Doppler analysis. FINDINGS: Sonographic imaging of the lower extremities demonstrates normal compressibility and color Doppler venous blood flow within the common femoral, deep femoral, and proximal greater saphenous veins. Within the thighs the right femoral veins are patent and compressible. At a lower level the popliteal and posterior tibial veins also show normal compressibility and color Doppler venous blood flow. On the left, there is a small amount of clot within the distal femoral vein which results in noncompressibility and absence of Doppler flow. IMPRESSION: Residual DVT within the distal left femoral vein although the left popliteal vein is now patent. No DVT within the right lower extremity. Dictated by Royer Paniagua MD @ 04/29/2025 12:28:47 PM (Electronically Signed)
== END 2025-04-29 11:22 | disposition home or self-care (01) ==
LOC: US 11:21
PROVIDERS: PCP Physician Assistant Medical; Visit Provider Physician Assistant Medical
DX: I26.99 Other pulmonary embolism without acute cor pulmonale (principal); I82.412 Acute embolism and thrombosis of left femoral vein; I82.409 Acute embolism and thrombosis of unspecified deep veins of unspecified lower extremity
CPT/HCPCS: 93970